=== PATIENT | male | born 1985 | race Caucasian/White ===

== ENCOUNTER 2020-12-26 17:04 | Emergency (ER) | payer MEDICARE, OTHER ==
[2020-12-26 18:05] LABS: BASOPHIL 0.3 % (0-2); HCT 48.5 % (42.0-52.0); HGB 15.2 g/dl (13.2-18.0); MCH 26.7 pg (25.0-31.0); MCHC 31.3 g/dL (32.0-36.0); MCV 85.1 fL (78.0-100.0); MONOCYTE 7.5 % (0-12); MPV 9.1 fL (6.0-9.5); NEUTROPHIL 66.1 % (41-80); NRBC 0; PLT 176 K/uL (150-400); RDW 14.5 % (11.5-14.0); WBC 6.9 K/uL (4.0-10.5)
[2020-12-26 18:27] LABS: BUN/CREAT RATIO (CALC) 14.6 RATIO; CREATININE 0.96 mg/dL (0.67-1.17); POTASSIUM 3.9 mmol/L (3.5-5.1)
== END 2020-12-26 20:55 | disposition home or self-care (01) ==
LOC: FER 17:04
PROVIDERS: Emergency Medicine
DX: R51.9 Headache, unspecified (principal); F70 Mild intellectual disabilities; Z98.2 Presence of cerebrospinal fluid drainage device
CPT/HCPCS: 36415; 70450; 80048; 83605; 85025